=== PATIENT | male | born 1985 | race Caucasian/White ===

== ENCOUNTER → 2016-06-13 | Outpatient (CLI) | payer OTHER ==
[2016-06-13 11:17] LABS: ALANINE AMINOTRANSFERASE 79 U/L (21-72); ALBUMIN 4.5 g/dL (3.5-5.0); ALKALINE PHOSPHATASE 79 U/L (38-126); ANION GAP 14 (5-19); ASPARTATE AMINO TRANSFERASE 34 U/L (17-59); BILIRUBIN,TOTAL 0.6 mg/dL (0.2-1.3); BLOOD UREA NITROGEN 17 mg/dL (7-20); CALCIUM 9.4 mg/dL (8.4-10.2); CARBON DIOXIDE 25 mmol/L (22-30); CHLORIDE 105 mmol/L (98-107); CHOLESTEROL 163.18 mg/dL (0-200); CREATININE RESULT 0.85 mg/dL (0.52-1.25); Direct HDL 33 mg/dL (>40); GLUCOSE 90 mg/dL (75-110); POTASSIUM 4.2 mmol/L (3.6-5.0); TRIGLYCERIDES 141 mg/dL (<150)
[2016-06-13 11:29] LABS: DIRECT LDL 105 mg/dL (<100)
== END ==
LOC: OD 09:30
DX: I10 Essential (primary) hypertension (principal)
CPT/HCPCS: 36415; 80053; 80061; 83036

== ENCOUNTER 2017-07-18 22:17 | Emergency (ER) | payer OTHER ==
--- NOTE | 2017-07-18 23:04 | ER Document Report ---
ED Medical Screen (RME) - General Chief Complaint: Upper Abdominal Pain Stated Complaint: SIDE PAIN Time Seen by Provider: 07/18/17 22:55 Mode of Arrival: Ambulatory Information source: Patient Notes: 32-year-old male presents to ED for upper left abdominal pain getting worse. States he was diagnosed with pneumonia yesterday. States she has been coughing on and on for almost a week. States she has had the left upper abdominal pain for about 2-3 weeks and the pneumonia he was diagnosed was in the lower right lobe. States she had bronchitis about a month or 2 ago. States he lost his mom on June 10. Abdomen soft tender to the left upper quadrant. I have greeted and performed a rapid initial assessment of this patient. A comprehensive ED assessment and evaluation of the patient, analysis of test results and completion of medical decision making process will be conducted by an additional ED providers. TRAVEL OUTSIDE OF THE [place] IN LAST 30 DAYS: No - Related Data Allergies/Adverse Reactions: latex [Latex] Allergy (Intermediate, Verified 04/27/16 09:32) rash oxycodone HCl [From Percocet] Allergy (Mild, Verified 04/27/16 09:32) itchy Past Medical History Pulmonary Medical History: Reports: Hx Bronchitis Musculoskeltal Medical History: Reports Hx Arthritis Past Surgical History: Reports: Hx Abdominal Surgery - herniorrhaphy., Hx Genitourinary Surgery - urethra strictures, Hx Herniorrhaphy, Other - ear surgery - Immunizations Immunizations up to date: Yes Hx Diphtheria, Pertussis, Tetanus Vaccination: Yes - 2006 Physical Exam - Vital signs Vitals: Temp Pulse Resp BP Pulse Ox 98.4 F 90 18 135/85 H 97 07/18/17 22:40 07/18/17 22:40 07/18/17 22:40 07/18/17 22:40 07/18/17 22:40 Course - Vital Signs Vital signs: Temp Pulse Resp BP Pulse Ox 98.4 F 90 18 135/85 H 97 07/18/17 22:40 07/18/17 22:40 07/18/17 22:40 07/18/17 22:40 07/18/17 22:40
[2017-07-18 23:50] LABS: ABSOLUTE BASOPHILS # (AUTO) 0.1 10^3/uL (0.0-0.2); ABSOLUTE EOSINOPHILS # (AUTO) 0.1 10^3/uL (0.0-0.6); ABSOLUTE LYMPHOCYTES (AUTO) 2.5 10^3/uL (0.5-4.7); ABSOLUTE MONOCYTES (AUTO) 0.5 10^3/uL (0.1-1.4); ABSOLUTE NEUT (AUTO) 5.2 10^3/uL (1.7-8.2); BASOPHILS % (AUTO) 0.8 % (0-2); EOSINOPHILS % (AUTO) 1.6 % (0-6); HEMATOCRIT 44.3 % (37.9-51.0); HEMOGLOBIN 15.3 g/dL (13.5-17.0); LYMPHOCYTES % (AUTO) 29.6 % (13-45); MEAN CORPUSCULAR HEMOGLOBIN 29.3 pg (27.0-33.4); MEAN CORPUSCULAR HGB CONC 34.7 g/dL (32.0-36.0); MEAN CORPUSCULAR VOLUME 84 fl (80-97); MONOCYTES % (AUTO) 6.4 % (3-13); PLATELET COUNT 209 10^3/uL (150-450); RED BLOOD COUNT 5.24 10^6/uL (4.35-5.55); RED CELL DISTRIBUTION WIDTH 14.4 % (11.5-14.0); SEGMENTED NEUTROPHILS % (AUTO) 61.6 % (42-78); TOTAL CELLS COUNTED % (AUTO) 100 %; WHITE BLOOD COUNT 8.4 10^3/uL (4.0-10.5)
[2017-07-19 00:04] LABS: ALANINE AMINOTRANSFERASE 60 U/L (21-72); ALBUMIN 4.8 g/dL (3.5-5.0); ALKALINE PHOSPHATASE 80 U/L (38-126); ANION GAP 12 (5-19); ASPARTATE AMINO TRANSFERASE 36 U/L (17-59); BILIRUBIN,DIRECT 0.1 mg/dL (0.0-0.4); BILIRUBIN,TOTAL 0.3 mg/dL (0.2-1.3); BLOOD UREA NITROGEN 14 mg/dL (7-20); CALCIUM 10.1 mg/dL (8.4-10.2); CARBON DIOXIDE 26 mmol/L (22-30); CHLORIDE 104 mmol/L (98-107); GLUCOSE 106 mg/dL (75-110); POTASSIUM 4.1 mmol/L (3.6-5.0); SODIUM 141.6 mmol/L (137-145); TOTAL PROTEIN 7.2 g/dL (6.3-8.2)
--- NOTE | 2017-07-19 01:04 | RADIOLOGY REPORT (SQ) ---
EXAM DESCRIPTION: U/S ABDOMEN LIMITED W/O DOP CLINICAL HISTORY: 32 years Male, left upper quad abdominal pain and tenderness COMPARISON: None. TECHNIQUE: Real-time sonographic images of the left upper abdomen obtained using a curved multi hertz transducer. FINDINGS: The spleen measures 13.6 cm with no other sonographic abnormality. The left kidney measures 11.8 cm in length. No solid renal mass, shadowing renal calculi, or hydronephrosis. IMPRESSION: 1. Splenomegaly.
[2017-07-19] MEDS ORDERED: NORMAL SALINE 1000 ML 1,000 ML IV ONE (04:34)
[2017-07-19] MEDS ORDERED: PREDNISONE 20 MG TABLET PO ONE (04:34)
--- NOTE | 2017-07-19 04:35 | ER Document Report ---
ED General - General Chief Complaint: Upper Abdominal Pain Stated Complaint: SIDE PAIN Time Seen by Provider: 07/18/17 22:55 Mode of Arrival: Ambulatory Notes: Patient is a 32-year-old male presents with complaint of pain in his left upper quadrant feels as if he might have enlarged spleen. He has been having pain for a few weeks. He says he has been sick with bronchitis since . He was recently placed in azithromycin was told he had pneumonia. He was placed on steroids. He was given an inhaler. He says he continues to cough. He denies any trauma or injuries to his abdomen. He denies any vomiting or diarrhea. He does smoke. He has no other complaints at this time. TRAVEL OUTSIDE OF THE [place] IN LAST 30 DAYS: No - Related Data Allergies/Adverse Reactions: latex [Latex] Allergy (Intermediate, Verified 04/27/16 09:32) rash oxycodone HCl [From Percocet] Allergy (Mild, Verified 04/27/16 09:32) itchy Past Medical History - General Information source: Patient - Social History Smoking Status: Current Every Day Smoker Frequency of alcohol use: None Drug Abuse: None Family History: Reviewed & Not Pertinent Patient has suicidal ideation: No Patient has homicidal ideation: No Pulmonary Medical History: Reports: Hx Bronchitis Renal/ Medical History: Denies: Hx Peritoneal Dialysis Musculoskeltal Medical History: Reports Hx Arthritis Past Surgical History: Reports: Hx Abdominal Surgery - herniorrhaphy., Hx Genitourinary Surgery - urethra strictures, Hx Herniorrhaphy, Other - ear surgery - Immunizations Immunizations up to date: Yes Hx Diphtheria, Pertussis, Tetanus Vaccination: Yes - 2006 Review of Systems - Review of Systems Notes: My Normal Review Basic REVIEW OF SYSTEMS: CONSTITUTIONAL : Recent diagnosis of pneumonia. EENT: sinus congestion. CARDIOVASCULAR: Denies chest pain. RESPIRATORY: Recurrent coughing. GASTROINTESTINAL: Soreness over left upper quadrant. No nausea vomiting. MUSCULOSKELETAL: Denies neck or back pain or joint pain or swelling. SKIN: Denies rash or skin lesions. NEUROLOGICAL: Denies altered mental status or loss of consciousness. Denies headache. Denies weakness or paralysis or loss of use of either side. Denies problems with gait or speech. Denies sensory or motor loss. ALL OTHER SYSTEMS REVIEWED AND NEGATIVE. Physical Exam - Vital signs Vitals: Temp Pulse Resp BP Pulse Ox 98.4 F 90 18 135/85 H 97 07/18/17 22:40 07/18/17 22:40 07/18/17 22:40 07/18/17 22:40 07/18/17 22:40 - Notes Notes: General Appearance: Well nourished, alert, cooperative, no acute distress, no obvious discomfort. recurrent dry cough on exam. Vitals: reviewed, See vital signs table. Head: no swelling or tenderness to the head Eyes: PERRL, EOMI, Conjuctiva clear Mouth: No decreasd moisture Throat: No tonsillar inflammation, No airway obstruction, No lymphadenopathy Neck: Supple, no neck tenderness, No thyromegaly Lungs: No wheezing, No rales, No rhonci, No accessory muscle use, good air exchange bilaterally. Heart: Normal rate, Regular rythm, No murmur, no rub Abdomen: Normal BS, soft, No rigidity, mild soreness to the left upper quadrant on palpation. Remainder of abdomen is nontender. Extremities: strength 5/5 in all extremities, good pulses in all extremities, no swelling or tenderness in the extremities, no edema. Skin: warm, dry, appropriate color, no rash Neuro: speech clear, oriented x 3, normal affect, responds appropriately to questions. Course - Re-evaluation Re-evalutation: 07/19/17 05:44 Patient has bronchitis possible pneumonia. He is already on antibiotics for this. He does have some coarse his lung cheng and therefore given prednisone. He has had abdominal pain for several weeks now. I suspect that his splenomegaly is most likely related to a viral type infection. I did discuss this with him. His mild test is negative. Formed him that there are other causes of splenomegaly which I think are much less likely however if his symptoms continue need to follow-up with health care sanitary technician. I have given the number to Dr. Hamilton, health care sanitary technician gas station supervisor. Informed him that further evaluation he may want to do further testing. Also informed him the risks of splenic rupture being that he has enlarged spleen. I encouraged her return to ER immediately if he has any trauma to his abdomen, increasing pain, fevers, or feels unwell. Patient agrees with plan will be discharged home. Dictation of this chart was performed using voice recognition software; therefore, there may be some unintended grammatical errors. - Vital Signs Vital signs: Temp Pulse Resp BP Pulse Ox 97.8 F 79 18 125/83 98 07/19/17 04:13 07/19/17 04:13 07/19/17 04:13 07/19/17 04:13 07/19/17 04:13 - Laboratory Result Diagrams: 07/18/17 23:40 07/18/17 23:40 Laboratory results interpreted by me: 07/18/17 23:40 RDW 14.4 H Discharge - Discharge Clinical Impression: Spleen enlarged, Bronchitis Condition: Good Disposition: HOME, SELF-CARE Additional Instructions: Your CT scan and ultrasound just show an enlarged spleen. Your scan shows that you have good blood flow to your spleen. The most likely cause of your enlarged spleen would be a viral infection such as Ebstein Prater virus or C[place] virus. The are other causes of enlarged spleen such as lymphoma and certain blood disorders. These are less likely, but we will have you follow up with the health care sanitary technician, Dr. Hamilton, for reevaluation and consideration of further workup if he feels that it is needed. Also you will likely need a repeat ultrasound of you spleen to make sure it is not enlarging further. Anytime you have an enlarged spleen you need to avoid trauma as any trauma can lead to spleen rupture. Please return to the ER immediately if you develop worsening salazar, high fevers, trauma to your abdomen, or if you feel unwell. Please take the Prednisone as prescribed for your lungs. please follow up with your doctor in 4- 5 days for reevaluation. return to the ER if you have difficulty breathing, worsening wheezing not responding to your inhaler, or if you feel that you are worsening. Prescriptions: Prednisone [Deltasone 20 mg Tablet] 3 tab PO DAILY 4 Days tablet Forms: Return to Work
--- NOTE | 2017-07-19 05:31 | RADIOLOGY REPORT (SQ) ---
EXAM DESCRIPTION: CT ABDOMEN AND PELVIS WITH CONTRAST CLINICAL HISTORY: enlarged spleen COMPARISON: 08/18/2012 TECHNIQUE: CT of the abdomen and pelvis are performed during IV bolus administration of 100 mL of Isovue-370. DLP: 1187.70 mGycm FINDINGS: Abdomen: The liver has normal size and density. No intrahepatic mass or biliary dilatation. No calcified gallstones. Gleason megaly. Pancreas and adrenal glands are unremarkable. The kidneys have normal size and contour without evidence of solid mass or hydronephrosis. The aorta and IVC have normal caliber and position. Retroaortic left renal vein. The portal vein patent. The proximal visceral and renal arteries are patent. No free intraperitoneal air. The stomach and duodenum have normal course. Pelvis: Prostate is not enlarged. Prior hernia repair. Urinary bladder is unremarkable. No free pelvic fluid or lymphadenopathy. No dilated loops of large or small bowel. Normal appendix. The visualized lung bases are clear. No destructive bone lesions identified. IMPRESSION: 1. Splenomegaly. 2. No other acute abnormality identified in the abdomen or pelvis. This exam was performed according to our departmental dose-optimization program, which includes automated exposure control, adjustment of the mA and/or kV according to patient size and/or use of iterative reconstruction technique.
[2017-07-19 06:11] VITALS: BP 126/67
== END 2017-07-19 06:08 | disposition home or self-care (01) ==
LOC: ER 22:17
DX: R16.1 Splenomegaly, not elsewhere classified (principal); J40 Bronchitis, not specified as acute or chronic; R10.12 Left upper quadrant pain; R05 Cough; F17.200 Nicotine dependence, unspecified, uncomplicated
CPT/HCPCS: 99284; 36415; 85025; 86308; 80053; 76705; 74160; J7512; J7030

== ENCOUNTER 2017-07-22 23:27 | Emergency (ER) | payer SELFPAY ==
--- NOTE | 2017-07-23 01:32 | ER Document Report ---
ED General - General Chief Complaint: Abdominal Pain Stated Complaint: ABDOMINAL PAIN Time Seen by Provider: 07/23/17 01:22 Notes: Patient is a 32-year-old male presents with complaint of pain over the left upper quadrant of the abdomen. He also has pain into the chest. Says it does hurt to take a deep breath. He was seen by me a few days ago. At that time he also had enlarged spleen. CT scan showed no evidence of infarction. His mono test was negative that time. We referred him to him with pathology. He has an appointment with the oyster worker on Saturday. He says that the pain has gradually worsened. Denies any trauma to the area. No fevers. He says he says he more in his lungs and anywhere. He has been taking the antibiotics that his physician had prescribed him for the pneumonia. He returns because of the increasing pain. TRAVEL OUTSIDE OF THE [place] IN LAST 30 DAYS: No - Related Data Allergies/Adverse Reactions: latex [Latex] Allergy (Intermediate, Verified 04/27/16 09:32) rash oxycodone HCl [From Percocet] Allergy (Mild, Verified 04/27/16 09:32) itchy Past Medical History - Social History Smoking Status: Unknown if Ever Smoked Frequency of alcohol use: None Drug Abuse: None Family History: Reviewed & Not Pertinent Patient has suicidal ideation: No Patient has homicidal ideation: No Pulmonary Medical History: Reports: Hx Bronchitis Renal/ Medical History: Denies: Hx Peritoneal Dialysis Musculoskeltal Medical History: Reports Hx Arthritis Past Surgical History: Reports: Hx Abdominal Surgery - herniorrhaphy., Hx Genitourinary Surgery - urethra strictures, Hx Herniorrhaphy, Other - ear surgery - Immunizations Immunizations up to date: Yes Hx Diphtheria, Pertussis, Tetanus Vaccination: Yes - 2006 Review of Systems - Review of Systems Notes: My Normal Review Basic REVIEW OF SYSTEMS: CONSTITUTIONAL : Denies fever, chills, or sweats. Denies recent illness. EENT: Denies eye, ear, throat, or mouth pain or symptoms. Denies nasal or sinus congestion. CARDIOVASCULAR: Floor chest pain RESPIRATORY: Cough. Recent diagnosis of pneumonia. GASTROINTESTINAL: Upper quadrant denies nausea, vomiting, or diarrhea. GENITOURINARY: Denies difficulty urinating, painful urination, burning, frequency, or blood in urine. MUSCULOSKELETAL: Denies neck or back pain or joint pain or swelling. SKIN: Denies rash or skin lesions. NEUROLOGICAL: Denies altered mental status or loss of consciousness. Denies headache. Denies weakness or paralysis or loss of use of either side. Denies problems with gait or speech. Denies sensory or motor loss. ALL OTHER SYSTEMS REVIEWED AND NEGATIVE. Physical Exam - Vital signs Vitals: Temp Pulse Resp BP Pulse Ox 98.4 F 85 14 129/81 H 96 07/22/17 23:38 07/22/17 23:38 07/22/17 23:38 07/22/17 23:38 07/22/17 23:38 - Notes Notes: General Appearance: Well nourished, alert, cooperative, no acute distress, moderate obvious discomfort. Vitals: reviewed, See vital signs table. Head: no swelling or tenderness to the head Eyes: PERRL, EOMI, Conjuctiva clear Mouth: No decreasd moisture Throat: No tonsillar inflammation, No airway obstruction, No lymphadenopathy Lungs: No wheezing, No rales, No rhonci, No accessory muscle use, good air exchange bilaterally. Heart: Normal rate, Regular rythm, No murmur, no rub Abdomen: Normal BS, soft, No rigidity, mild left upper quadrant abdominal tenderness to palpation, No guarding, no rebound, no abdominal masses, no organomegaly Extremities: strength 5/5 in all extremities, good pulses in all extremities, no swelling or tenderness in the extremities, no edema. Skin: warm, dry, appropriate color, no rash Neuro: speech clear, oriented x 3, normal affect, responds appropriately to questions. Course - Re-evaluation Re-evalutation: 07/23/17 07:30 Patient's chest x-ray does not show any concerning findings. His spleen ultrasound does not show that the spleen is enlarging. He has good vascular flow. His laboratory evaluation is unremarkable. I encourage patient to keep his appointment with the oyster worker. I encourage him return to ER if he has difficulty breathing, worsening pain, fevers, or feels unwell. Patient says his cough has improved significantly since starting the prednisone. Dictation of this chart was performed using voice recognition software; therefore, there may be some unintended grammatical errors. - Vital Signs Vital signs: Temp Pulse Resp BP Pulse Ox 98.4 F 81 20 125/65 98 07/22/17 23:38 07/23/17 03:44 07/23/17 03:44 07/23/17 03:44 07/23/17 03:44 - Laboratory Result Diagrams: 07/23/17 03:00 07/23/17 03:00 Laboratory results interpreted by me: 07/23/17 07/23/17 03:00 03:00 WBC 11.9 H RDW 14.4 H Seg Neutrophils % 84.9 H Lymphocytes % 11.5 L Absolute Neutrophils 10.1 H Glucose 156 H Discharge - Discharge Clinical Impression: Chest pain Qualifiers: Chest pain type: unspecified Qualified Code(s): R07.9 - Chest pain, unspecified Abdominal pain Qualifiers: Abdominal location: left upper quadrant Qualified Code(s): R10.12 - Left upper quadrant pain Condition: Good Disposition: HOME, SELF-CARE Additional Instructions: Please follow up with the oyster worker on Saturday as scheduled. Please return to the ER immediately if you have difficulty breathing, fevers, worsening pain, or have any further concerns. Please take Tylenol for the pain. Forms: Return to Work
--- NOTE | 2017-07-23 02:41 | RADIOLOGY REPORT (SQ) ---
EXAM DESCRIPTION: U/S ABDOMEN LTD W/DOPPLER CLINICAL HISTORY: 32 years, Male, spleen, luq pain COMPARISON: 08/16/2017. CT, July 19, 2017. TECHNIQUE: Transabdominal. Color Doppler. Targeted for evaluation of the spleen. LIMITATIONS: None. FINDINGS: 13.8 cm mild splenomegaly; venous and arterial flow demonstrated at the splenic hilum. 11.8 cm left kidney appears unremarkable. IMPRESSION: Mild splenomegaly. Stable.
[2017-07-23 03:13] LABS: ABSOLUTE LYMPHOCYTES (AUTO) 1.4 10^3/uL (0.5-4.7); ABSOLUTE MONOCYTES (AUTO) 0.4 10^3/uL (0.1-1.4); ABSOLUTE NEUT (AUTO) 10.1 10^3/uL (1.7-8.2); BASOPHILS % (AUTO) 0.1 % (0-2); EOSINOPHILS % (AUTO) 0.1 % (0-6); HEMATOCRIT 41.7 % (37.9-51.0); HEMOGLOBIN 14.3 g/dL (13.5-17.0); LYMPHOCYTES % (AUTO) 11.5 % (13-45); MEAN CORPUSCULAR HEMOGLOBIN 29.4 pg (27.0-33.4); MEAN CORPUSCULAR HGB CONC 34.4 g/dL (32.0-36.0); MEAN CORPUSCULAR VOLUME 85 fl (80-97); MONOCYTES % (AUTO) 3.4 % (3-13); PLATELET COUNT 215 10^3/uL (150-450); RED BLOOD COUNT 4.88 10^6/uL (4.35-5.55); RED CELL DISTRIBUTION WIDTH 14.4 % (11.5-14.0); SEGMENTED NEUTROPHILS % (AUTO) 84.9 % (42-78); TOTAL CELLS COUNTED % (AUTO) 100 %; WHITE BLOOD COUNT 11.9 10^3/uL (4.0-10.5)
[2017-07-23 03:17] LABS: ALANINE AMINOTRANSFERASE 60 U/L (21-72); ALBUMIN 4.5 g/dL (3.5-5.0); ALKALINE PHOSPHATASE 91 U/L (38-126); ANION GAP 10 (5-19); ASPARTATE AMINO TRANSFERASE 26 U/L (17-59); BILIRUBIN,DIRECT 0.1 mg/dL (0.0-0.4); BILIRUBIN,TOTAL 0.2 mg/dL (0.2-1.3); BLOOD UREA NITROGEN 18 mg/dL (7-20); CALCIUM 9.6 mg/dL (8.4-10.2); CARBON DIOXIDE 24 mmol/L (22-30); CHLORIDE 106 mmol/L (98-107); GLUCOSE 156 mg/dL (75-110); SODIUM 140.3 mmol/L (137-145); TOTAL PROTEIN 6.6 g/dL (6.3-8.2)
[2017-07-23 03:45] VITALS: BP 125/65
--- NOTE | 2017-07-23 04:50 | RADIOLOGY REPORT (SQ) ---
EXAM DESCRIPTION: CHEST PA/LAT CLINICAL HISTORY: 32 years, Male, cough, recnet pneumonia COMPARISON: April 10, 2015 FINDINGS: Increased lung volume, clear parenchyma, normal cardiac silhouette, and intact bony thorax. IMPRESSION: No acute cardiopulmonary findings.
== END 2017-07-23 03:44 | disposition home or self-care (01) ==
LOC: ER 23:27
DX: R10.12 Left upper quadrant pain (principal); R07.9 Chest pain, unspecified; Z88.6 Allergy status to analgesic agent
CPT/HCPCS: 36415; 71046; 76705; 80053; 85025; 93976; 99284

== ENCOUNTER → 2017-08-27 | Outpatient (CLI) | payer SELFPAY ==
[2017-08-27 16:40] LABS: INTERNATIONAL RATION (INR) 0.93; PARTIAL THROMBOPLASTIN TIME 30.9 SEC (23.5-35.8); PROTHROMBIN TIME 13.1 SEC (11.4-15.4)
== END ==
LOC: OD 15:20
PROVIDERS: ATTEND Surgery
DX: Z91.89 Other specified personal risk factors, not elsewhere classified (principal)
CPT/HCPCS: 36415; 85610; 85730

== ENCOUNTER 2017-10-23 08:56 | Day surgery (SDC) | payer SELFPAY ==
[2017-10-14 11:03] LABS: HEMATOCRIT 45.7 % (37.9-51.0); HEMOGLOBIN 15.8 g/dL (13.5-17.0); MEAN CORPUSCULAR HEMOGLOBIN 29.5 pg (27.0-33.4); MEAN CORPUSCULAR HGB CONC 34.6 g/dL (32.0-36.0); MEAN CORPUSCULAR VOLUME 85 fl (80-97); PLATELET COUNT 182 10^3/uL (150-450); RED BLOOD COUNT 5.37 10^6/uL (4.35-5.55); RED CELL DISTRIBUTION WIDTH 14.7 % (11.5-14.0); WHITE BLOOD COUNT 6.9 10^3/uL (4.0-10.5)
[2017-10-14 11:34] LABS: ANION GAP 16 (5-19); BLOOD UREA NITROGEN 13 mg/dL (7-20); CALCIUM 9.8 mg/dL (8.4-10.2); CARBON DIOXIDE 25 mmol/L (22-30); CHLORIDE 104 mmol/L (98-107); GLUCOSE 100 mg/dL (75-110); POTASSIUM 4.5 mmol/L (3.6-5.0); SODIUM 144.5 mmol/L (137-145)
--- NOTE | 2017-10-14 14:10 | EKG REPORT ---
SEVERITY:- NORMAL ECG - SINUS RHYTHM : Confirmed by: Raul Mcdonough MD 14-Oct-2017 14:09:59
[~2017-10-23 08:56] MED LIST: LACTATED RINGERS 1000 ML IV PRN; LIDOCAINE 0.5% INJ-PF (5 MG/ML) 50 ML SDV SUBCUT PRN
[2017-10-23] MEDS ORDERED: MIDAZOLAM 2 MG/2 ML INJ ONE ×2 (10:07)
[2017-10-23] MEDS ORDERED: KETAMINE HCL INJ 500 MG/10 ML VIAL ONE (10:07)
[2017-10-23] MEDS ORDERED: PROPOFOL INJ 200 MG/20 ML VIAL IV ONE ×2 (10:08→10:13)
[2017-10-23] MEDS ORDERED: DIPHENHYDRAMINE HCL 50 MG/ML VIAL IV PRN (10:44)
[2017-10-23] MEDS ORDERED: MEPERIDINE HCL/PF INJ 25 MG/1 ML DISP.SYRIN IV PRN (10:44)
[2017-10-23] MEDS ORDERED: PROMETHAZINE HCL INJ 25 MG/1 ML VIAL IV PRN ×2 (10:44)
--- NOTE | 2017-10-23 11:15 | Operative Report ---
Operative Report DATE OF SURGERY: 10/23/17 PREOPERATIVE DIAGNOSIS: 1. Abdominal pain of unknown etiology. 2. Splenomegaly POSTOPERATIVE DIAGNOSIS: Same OPERATION: 1. Esophagogastroduodenoscopy. 2. Cold forceps biopsy of gastric body. 3. Total colonoscopy to cecum with photodocumentation. SURGEON: SEJAL LANGE ANESTHESIA: LMAC TISSUE REMOVED OR ALTERED: Cold forceps biopsy gastric mucosa COMPLICATIONS: None ESTIMATED BLOOD LOSS: Scant INTRAOPERATIVE FINDINGS: See below PROCEDURE: Patient was taken to the operating room where LMAC anesthesia was induced. Patient placed a left lateral decubitus position, oral mouthpiece inserted the hypopharynx and the styes. 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 The surgical timeout surgical plan were discussed The flexible adult upper endoscope was advanced through the oropharynx, down the esophagus, through the stomach into the duodenum. This is an excellent study well tolerated by the patient without complication. The first and second portions of the duodenum were carefully visualized and were normal. The scope was brought through the pylorus, and there was no evidence of pathology. There was mild gastritis of the gastric antrum, photos taken, and a biopsy performed with the cold forceps device, bleeding minimal. There was no evidence of tumor stricture or polyp. There was no evidence of retained gastric contents. The scope was retroflexed in the stomach, with a good look at the GE junction from the distal side which was essentially unremarkable. Scope straightened out and brought back through the GE junction; visualization of the entire esophagus was performed. There was no evidence of varix, tumor or mass. There was no evidence of stricture. Scope was room for the patient's oropharynx. Tolerated procedure well. Weakness of the equipment up for colonoscopy. The patient placed in the extreme left lateral decubitus position. A rectal exam performed by Dr. Lange using index finger. There is no evidence of a prostatic mass. The anal sphincter tone was felt to be normal. The flexible colonoscope was advanced to the anorectal canal all the way to the cecum. This was an excellent study and a well-prepped bowel. Residual amount of green юлия type stool which irrigated out easily. Transillumination of the intra-abdominal wall, visualization of the cecal anatomy confirmed cecal intubation. The terminal ileum was not cannulated. The scope was withdrawn through the length of the human colon; we checked the mucosa carefully. There was some evidence of mild mucosal trauma, otherwise no evidence of pathology. There was no evidence of tumor stricture bleeding or polyp. There is no diverticulosis. Scope was retroflexed in the anorectal canal. No evidence of tumor or any pathology at the dentate line. Scope withdrawn the patient's anus. He tolerated procedure well. He was taken to recovery room stable condition. Per screening guidelines, patient be appropriate candidate for follow-up colonoscopy in 10 years, or sooner if symptoms develop.
[2017-10-23 12:57] VITALS: BP 133/91
--- NOTE | 2017-10-23 13:34 | Discharge Summary ---
Discharge Summary (SDC) - Discharge Final Diagnosis: screening colonoscopy Date of Surgery: 10/23/17 Discharge Date: 10/23/17 Condition: Good Forms: ASU Anesthesia D/C Instruction, Discharge POC-Surgical Service Referrals: SEJAL RUTLEDGE MD [ACTIVE STAFF] - 11/05/17 1:00 pm Respiratory Treatments at Home: Deep Breathing/Coughing Discharge Activity: Activity As Tolerated, Slowly Increase Activity, Walk Frequently Home Care Assistance: None Needed Report the Following to Your Physician Immediately: Shortness of Breath, Vomiting, Increase in Pain, Fever over 101 Degrees, Unusual Bleeding, Large Clots, IV Site Infection Signs, Urinary Infection Signs
== END 2017-10-23 13:04 | disposition home or self-care (01) ==
LOC: OROUT 08:56
PROVIDERS: ATTEND Surgery
DX: K29.50 Unspecified chronic gastritis without bleeding (principal); R10.9 Unspecified abdominal pain; Z87.19 Personal history of other diseases of the digestive system; F17.210 Nicotine dependence, cigarettes, uncomplicated; D66 Hereditary factor VIII deficiency; R16.1 Splenomegaly, not elsewhere classified; I10 Essential (primary) hypertension; I49.9 Cardiac arrhythmia, unspecified; M26.09 Other specified anomalies of jaw size; Z88.5 Allergy status to narcotic agent
CPT/HCPCS: 43239; 45378; 93005; 36415; 85027; 80048; 88342 ×2; 88305 ×2; 93010; J2250; J3490; J2704; 813

== ENCOUNTER → 2017-12-09 | Outpatient (CLI) | payer SELFPAY ==
[2017-12-09 14:18] LABS: PFA ADP 115 (56-106); PFA EPI 251 (55-179)
== END ==
LOC: OD 12:32
PROVIDERS: ATTEND Internal Medicine Hematology & Oncology
DX: R58 Hemorrhage, not elsewhere classified (principal); R16.1 Splenomegaly, not elsewhere classified
CPT/HCPCS: 36415; 85576

== ENCOUNTER 2018-01-09 05:58 | Emergency (ER) | payer SELFPAY ==
--- NOTE | 2018-01-09 07:07 | ER Document Report ---
ED General - General Chief Complaint: Pain All Over Stated Complaint: FEVER Time Seen by Provider: 01/09/18 06:53 TRAVEL OUTSIDE OF THE [place] IN LAST 30 DAYS: No - HPI Patient complains to provider of: shivering after dental procedure Onset: Yesterday Onset/Duration: Gradual Quality of pain: No pain Associated symptoms: None - This 32-year-old gentleman had a dental extraction yesterday after which he began to have some chills through the night with some shaking and a general feeling of being unwell. He notes that he has had bleeding problems in the past and that he had some oozing from the dental site for several hours after his procedure. He denies any loss of consciousness lightheadedness but does endorse chills and a sensation of potentially having a fever. He notes that he has had bad reactions in the past medications nothing is a seem to make it any better nothing is seen to make it much worse. - Related Data Allergies/Adverse Reactions: latex [Latex] Allergy (Intermediate, Verified 10/23/17 09:13) rash oxycodone HCl [From Percocet] Allergy (Mild, Verified 10/23/17 09:13) itchy Past Medical History - Social History Smoking Status: Current Every Day Smoker Family History: Reviewed & Not Pertinent Patient has suicidal ideation: No Patient has homicidal ideation: No - Medical History Medical History: Other - History of bleeding problems - Past Medical History Cardiac Medical History: Reports: Hx Hypertension - no meds Denies: Hx Coronary Artery Disease, Hx Heart Attack Pulmonary Medical History: Reports: Hx Bronchitis Denies: Hx Asthma, Hx COPD, Hx Pneumonia Neurological Medical History: Denies: Hx Cerebrovascular Accident, Hx Seizures Renal/ Medical History: Denies: Hx Peritoneal Dialysis Musculoskeletal Medical History: Reports Hx Arthritis - back Past Surgical History: Reports: Hx Abdominal Surgery - herniorrhaphy., Hx Genitourinary Surgery - urethra strictures, Hx Herniorrhaphy, Other - ear surgery - Immunizations Immunizations up to date: Yes Hx Diphtheria, Pertussis, Tetanus Vaccination: Yes - 2006 Review of Systems - Review of Systems Constitutional: No symptoms reported EENT: Dental problem Cardiovascular: No symptoms reported Respiratory: No symptoms reported Gastrointestinal: No symptoms reported Genitourinary: No symptoms reported Musculoskeletal: No symptoms reported Skin: No symptoms reported Hematologic/Lymphatic: No symptoms reported Neurological/Psychological: No symptoms reported Physical Exam - Vital signs Vitals: Temp Pulse Resp BP Pulse Ox 98.4 F 125 H 16 133/88 H 96 01/09/18 06:04 01/09/18 06:04 01/09/18 06:04 01/09/18 06:04 01/09/18 06:04 - General General appearance: Appears well In distress: None - HEENT Head: Normocephalic Teeth diagram: 1 - Extraction Pharynx: Normal Neck: Normal - Respiratory Respiratory status: No respiratory distress - Cardiovascular Rhythm: Regular Heart sounds: Normal auscultation - Abdominal Inspection: Normal - Extremities General upper extremity: Normal inspection - Neurological Neuro grossly intact: Yes - Psychological Associated symptoms: Normal affect Course - Re-evaluation Re-evalutation: 01/09/18 07:08 This 32-year-old male presented for evaluation of approximately 20 hours after having a dental extraction yesterday. Following his dental extraction had persistent oozing from the site of the extraction, re-presented to the dentist reevaluated him said that using was appropriate. At this time given that the oozing is controlled and stopped approximately 12 hours prior patient noted that he woke up this morning with chills does not feel well. We will plan for obtaining CBC, will plan for basic chemistry as well. We will plan for observation. In the emergency department and encourage oral intake for this patient. 01/09/18 07:55 Patient has become febrile, we will plan to administer Tylenol, reassess the patient will administer 1 L of normal saline via IV will obtain a chest x-ray for possible aspiration while receiving dental care. Patient with modest atelectasis, his fever and tachycardia resolved after administration of Tylenol emergency department is able tolerate p.o. and ambulate without assistance. His chest x-ray shows a modest infiltrate which is read as atelectasis clinically this patient does likely have a pneumonia as such we will plan to treat. Patient to be discharged with strict return precautions in case of any worsening shortness of breath chest pain fevers chills inability to tolerate p.o. Of note is that this patient did have a normal H&H as well as normal bmp despite her saying that he has a history of bleeding. He does have slightly lower platelets than usual but not in worrisome state requiring transfusion. 01/09/18 10:39 - Vital Signs Vital signs: Temp Pulse Resp BP Pulse Ox 98.5 F 125 H 15 105/78 97 01/09/18 08:46 01/09/18 06:04 01/09/18 08:46 01/09/18 08:46 01/09/18 08:46 - Laboratory Result Diagrams: 01/09/18 07:30 01/09/18 07:30 Laboratory results interpreted by me: 01/09/18 07:30 RDW 14.3 H Plt Count 117 L Seg Neutrophils % 83.4 H Lymphocytes % 8.2 L Absolute Lymphocytes 0.4 L Discharge - Discharge Clinical Impression: Aspiration into airway Condition: Stable Disposition: HOME, SELF-CARE Instructions: Fever ([facility]), Pneumonia ([facility]) Additional Instructions: You were seen today in the emergency department for your fever. You had an evaluation including a physical exam, chest x-ray, and tests of your blood. It looks like you may have a small pneumonia after having swallowed some spit during surgery. You will be treated with an antibiotic, use it as described. Use Motrin and Tylenol as needed for pain and fever, return for any worsening shortness of breath chest pain and inability to eat or drink lightheadedness dizziness numbness or weakness. Otherwise call your doctor today to schedule appointment in the next 3 days. Prescriptions: Amoxicillin/Potassium Clav [Augmentin Xr 1,000-62.5 Tab] 2 each PO BID 7 Days # 14 tab.er.[id number] Forms: Return to Work Referrals: AKBAR TREVINO MD [ACTIVE STAFF] - Follow up as needed
[2018-01-09] MEDS ORDERED: ACETAMINOPHEN 325 MG TABLET PO ONE (07:35)
[2018-01-09] MEDS ORDERED: NORMAL SALINE 1000 ML 1,000 ML IV ONE (07:35)
[2018-01-09 07:55] LABS: ABSOLUTE LYMPHOCYTES (AUTO) 0.4 10^3/uL (0.5-4.7); ABSOLUTE MONOCYTES (AUTO) 0.4 10^3/uL (0.1-1.4); BASOPHILS % (AUTO) 0.4 % (0-2); EOSINOPHILS % (AUTO) 0.4 % (0-6); HEMATOCRIT 43.3 % (37.9-51.0); HEMOGLOBIN 15.2 g/dL (13.5-17.0); LYMPHOCYTES % (AUTO) 8.2 % (13-45); MEAN CORPUSCULAR HEMOGLOBIN 29.4 pg (27.0-33.4); MEAN CORPUSCULAR VOLUME 84 fl (80-97); MONOCYTES % (AUTO) 7.6 % (3-13); PLATELET COUNT 117 10^3/uL (150-450); RED BLOOD COUNT 5.16 10^6/uL (4.35-5.55); RED CELL DISTRIBUTION WIDTH 14.3 % (11.5-14.0); SEGMENTED NEUTROPHILS % (AUTO) 83.4 % (42-78); TOTAL CELLS COUNTED % (AUTO) 100 %; WHITE BLOOD COUNT 4.8 10^3/uL (4.0-10.5)
[2018-01-09 08:18] LABS: ANION GAP 11 (5-19); BLOOD UREA NITROGEN 10 mg/dL (7-20); CALCIUM 9.1 mg/dL (8.4-10.2); CARBON DIOXIDE 28 mmol/L (22-30); CHLORIDE 104 mmol/L (98-107); GLUCOSE 97 mg/dL (75-110); POTASSIUM 4.1 mmol/L (3.6-5.0); SODIUM 142.5 mmol/L (137-145)
--- NOTE | 2018-01-09 08:27 | RADIOLOGY REPORT (SQ) ---
EXAM DESCRIPTION: CHEST 2 VIEWS COMPLETED DATE/TIME: 01/09/2018 8:10 am REASON FOR STUDY: concern for aspiration COMPARISON: On chest film 07/23/2017, 04/10/2015, 10/23/2009 EXAM PARAMETERS: NUMBER OF VIEWS: two views TECHNIQUE: Digital Frontal and Lateral radiographic views of the chest acquired. RADIATION DOSE: NA LIMITATIONS: none FINDINGS: LUNGS AND PLEURA: Minimal left basilar bandlike atelectasis just above the hemidiaphragm. No fluffy alveolar infiltrates worrisome for edema or pneumonia. No pleural effusion. No pneumothor ax. 1 MEDIASTINUM AND HILAR STRUCTURES: No masses or contour abnormalities. HEART AND VASCULAR STRUCTURES: Heart normal size. No evidence for failure. BONES: No acute findings. HARDWARE: None in the chest. OTHER: No other significant finding. IMPRESSION: Minimal bandlike atelectasis left lung base TECHNICAL DOCUMENTATION: JOB ID: [id number] [employer]- All Rights Reserved Reading location - IP/workstation name: [email or web address]
[2018-01-09 08:51] VITALS: BP 105/78
== END 2018-01-09 08:51 | disposition home or self-care (01) ==
LOC: ER 05:58
DX: J95.89 Other postprocedural complications and disorders of respiratory system, not elsewhere classified (principal); J98.11 Atelectasis; J69.0 Pneumonitis due to inhalation of food and vomit; R50.9 Fever, unspecified; F17.200 Nicotine dependence, unspecified, uncomplicated; Z98.890 Other specified postprocedural states; I10 Essential (primary) hypertension
CPT/HCPCS: 99284; 96360; 36415; 85025; 80048; 71046; J7030

== ENCOUNTER 2019-09-26 22:15 | Emergency (ER) | payer SELFPAY ==
--- NOTE | 2019-09-26 22:51 | ER Document Report ---
ED Medical Screen (RME) - General Chief Complaint: Cold Symptoms Stated Complaint: RIGHT EAR PAIN Notes: Patient is a 34-year-old white male with a past medical history of allergies who presents to the emergency department with a chief complaint of cough for the past few days. Patient states the cough is productive of a discolored sputum. He reports that it is been associated with a slight increase in his baseline shortness of breath. States is been associated with sneezing and right ear pain as well. He denies any known fevers or chills. 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 I have treated and performed a rapid initial assessment of this patient. A comprehensive ED assessment and evaluation of the patient, analysis of test results and completion of medical decision making process will be conducted by additional ED providers. PHYSICAL EXAMINATION: GENERAL: Well-appearing, well-nourished and in no acute distress. A&Ox4. Answers questions appropriately. TRAVEL OUTSIDE OF THE [place] IN LAST 30 DAYS: No - Related Data Allergies/Adverse Reactions: latex [Latex] Allergy (Intermediate, Verified 10/23/17 09:13) rash oxycodone HCl [From Percocet] Allergy (Mild, Verified 10/23/17 09:13) itchy Past Medical History - Social History Chew tobacco use (# tins/day): No Frequency of alcohol use: None Drug Abuse: None - Past Medical History Cardiac Medical History: Reports: Hx Hypertension - no meds Denies: Hx Coronary Artery Disease, Hx Heart Attack Pulmonary Medical History: Reports: Hx Bronchitis Denies: Hx Asthma, Hx COPD, Hx Pneumonia Neurological Medical History: Denies: Hx Cerebrovascular Accident, Hx Seizures Renal/ Medical History: Denies: Hx Peritoneal Dialysis Musculoskeltal Medical History: Reports Hx Arthritis - back Past Surgical History: Reports: Hx Abdominal Surgery - herniorrhaphy., Hx Genitourinary Surgery - urethra strictures, Hx Herniorrhaphy, Other - ear surgery - Immunizations Immunizations up to date: Yes Hx Diphtheria, Pertussis, Tetanus Vaccination: Yes - 2006 Physical Exam - Vital signs Vitals: Temp Pulse Resp BP Pulse Ox 98.0 F 71 13 130/83 H 98 09/26/19 22:29 09/26/19 22:29 09/26/19 22:29 09/26/19 22:29 09/26/19 22:29 Course - Vital Signs Vital signs: Temp Pulse Resp BP Pulse Ox 98.0 F 71 13 130/83 H 98 09/26/19 22:29 09/26/19 22:29 09/26/19 22:29 09/26/19 22:29 09/26/19 22:29
[2019-09-26 23:39] LABS: A TYPE INFLUENZA AG NEGATIVE (NEGATIVE); B INFLUENZA AG NEGATIVE (NEGATIVE)
[2019-09-26] MEDS ORDERED: KETOROLAC TROMETHAMINE 60 MG/2 ML SDV IM ONE (23:45)
[2019-09-26] MEDS ORDERED: CIPROFLOXACIN HCL/DEXAMETH OTIC DROP 7.5 ML AD ONE (23:45)
--- NOTE | 2019-09-26 23:47 | ER Document Report ---
HPI - HPI Time Seen by Provider: 09/26/19 23:11 Pain Level: 3 Context: Patient is a 34-year-old male that comes emergency department for chief complaint of right ear pain. He states he has a throbbing pain in his right ear, he states he cannot even touch the ear without severe pain. He denies hearing loss, trauma, congestion, sore throat. Patient also has had a cough for several days, occasional clear productive sputum, and occasional sneezing. He denies fever but reports some chills. He denies recent travel or obvious sick contacts. 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 Patient states he has history of frequent pneumonia, he smokes, he also had a pneumothorax years ago. He denies difficulty breathing or chest pain however. He denies recreational drugs. - EENT EENT: REPORTS: Ear Pain - RESPIRATORY Respiratory: REPORTS: Trouble Breathing, Coughing Past Medical History - General Information source: Patient - Social History Smoking Status: Current Every Day Smoker Chew tobacco use (# tins/day): No Frequency of alcohol use: None Drug Abuse: None Lives with: Family Family History: Reviewed & Not Pertinent Patient has suicidal ideation: No Patient has homicidal ideation: No - Past Medical History Cardiac Medical History: Reports: Hx Hypertension - no meds Denies: Hx Coronary Artery Disease, Hx Heart Attack Pulmonary Medical History: Reports: Hx Bronchitis Denies: Hx Asthma, Hx COPD, Hx Pneumonia Neurological Medical History: Denies: Hx Cerebrovascular Accident, Hx Seizures Renal/ Medical History: Denies: Hx Peritoneal Dialysis Musculoskeletal Medical History: Reports Hx Arthritis - back Past Surgical History: Reports: Hx Abdominal Surgery - herniorrhaphy., Hx Genitourinary Surgery - urethra strictures, Hx Herniorrhaphy, Other - ear surgery - Immunizations Immunizations up to date: Yes Hx Diphtheria, Pertussis, Tetanus Vaccination: Yes - 2006 [facility] Provider Document - CONSTITUTIONAL General Appearance: WD/WN, No Apparent Distress - INFECTION CONTROL TRAVEL OUTSIDE OF THE [place] IN LAST 30 DAYS: No - HEENT HEENT: Atraumatic, Normocephalic. negative: Normal ENT Exam - Patient has tenderness over the right tragus with erythema of the canal, there is a moderate amount of wax in the right ear canal and the tympanic membrane is difficult to visualize, I cannot visualize this in the left ear. Mastoids are normal. Sinus exam unremarkable, oropharyngeal exam unremarkable. - NECK Neck: Normal Inspection. negative: Lymphadenopathy-Left, Lymphadenopathy-Right - RESPIRATORY Respiratory: Breath Sounds Normal, No Respiratory Distress - CARDIOVASCULAR Cardiovascular: Regular Rate, Regular Rhythm - GI/ABDOMEN Gastrointestinal: Abdomen Soft, Abdomen Non-Tender. negative: Abdomen Tender - BACK Back: Normal Inspection - MUSCULOSKELETAL/EXTREMETIES Musculoskeletal/Extremeties: MAEW, FROM, Non-Tender - NEURO Level of Consciousness: Awake, Alert, Appropriate Motor/Sensory: No Motor Deficit, No Sensory Deficit - DERM Integumentary: Warm, Dry, No Rash Course - Re-evaluation Re-evalutation: Because of patient's reported chills, cough, history of repeated pneumonia, history of pneumothorax, initially by protocol strep and influenza test were performed pending coronavirus testing, these were both negative, coronavirus is pending. I did discuss this, we will proceed and complete testing of coronavirus for the patient although I do have a lower suspicion of this with the patient. He has not had a fever, he has no hypoxia, no coughing on my exam, clear lungs, no signs of any respiratory distress. Chest x-ray is clear. Patient does however have obvious otitis externa on exam without secondary concerning findings. He was treated with Ciprodex and provided with this to go, discussed pending tests, recommendations, follow-up, and return precautions at length. Patient states appreciation and agreement with plan. Stable and well- appearing at time of discharge. - Vital Signs Vital signs: Temp Pulse Resp BP Pulse Ox 98.0 F 71 13 130/83 H 98 09/26/19 22:29 09/26/19 22:29 09/26/19 22:29 09/26/19 22:29 09/26/19 22:29 Discharge - Discharge Clinical Impression: Cough, Right ear pain Otitis externa Qualifiers: Otitis externa type: unspecified type Chronicity: acute Laterality: right Qualified Code(s): H60.501 - Unspecified acute noninfective otitis externa, right ear Condition: Stable Disposition: HOME, SELF-CARE Additional Instructions: Your chest x-ray is unremarkable, your evaluation is reassuring. This is most likely viral. You have been tested for the coronavirus, you will be contacted with the results, please see instructions on isolation listed below. Your evaluation also indicates right-sided otitis externa as we discussed. Use the drops as provided (4 drops, twice a day, for 7 days). Take 600 mg of ibuprofen and 1000 mg of Tylenol every 6 hours for pain. You can take additional [id number] medications for your general viral symptoms. Return if you worsen including swelling at the ear, spiking fevers, difficulty breathing, or any other concerning symptoms. As a person under investigation for COVID-19, the [facility] (divison on public health) advises you to adhere to the following guidance until your test results are reported to you. If your test result is positive, you will receive additional information from your provider and your local health department at that time. Remain at home until you are cleared by the health provider or public health authorities. Keep a log of visitors to your home, notify any visitors to your home of your isolation status. If you plan to move to a new address or leave the [facility], notify the local health department in your County. Call your Doctor or seek care if you have an urgent medical need. Before seeking medical care, call him to get instructions from the provider before arriving at the medical office, clinic, or hospital. Notify them that you are being tested for the virus (COVID-19) so that arrangements can be made, as necessary, to prevent transmission to others in the healthcare setting. Next, notify the local health department in your county. If a medical emergency arises and you need to call 911, inform the first responders that you are being tested for the virus that causes COVID-19. Next, notify the local health department in your county. Prescriptions: Ciprofloxacin HCl/Dexameth [Ciprodex Otic Suspension 7.5 ml Bottle] 4 drop BID #1 bottle Forms: Return to Work
--- NOTE | 2019-09-27 00:08 | RADIOLOGY REPORT (SQ) ---
EXAM DESCRIPTION: X-RAY CHEST- One View CLINICAL HISTORY: Cough COMPARISON: January 09, 2018 TECHNIQUE: Single view of the chest. FINDINGS: Bandlike opacity overlying the left lower lobe is stable dating back to 2018. There are no new discrete air space infiltrates, pneumothoraces or pleural effusions. The pulmonary vascularity is normal. The cardiomediastinal silhouette is normal in size. No suspicious lytic or blastic osseous lesions are identified. IMPRESSION: There are no acute lung parenchymal findings.
[2019-09-27 00:31] VITALS: BP 139/79
== END 2019-09-27 00:31 | disposition home or self-care (01) ==
LOC: ER 22:15
DX: H60.501 Unspecified acute noninfective otitis externa, right ear (principal); R05 Cough; R06.00 Dyspnea, unspecified; F17.200 Nicotine dependence, unspecified, uncomplicated
CPT/HCPCS: 99283; 96372; 87070; 87880; 87804; 71045; J1885; J3490

== ENCOUNTER 2020-02-17 23:21 | Emergency (ER) | payer SELFPAY ==
--- NOTE | 2020-02-18 02:23 | RADIOLOGY REPORT (SQ) ---
EXAM DESCRIPTION: XR CHEST 2 VIEWS COMPLETED DATE/TME: 02/18/2020 00:00 CLINICAL HISTORY: 34 years, Male, CHEST PAIN COMPARISON: 09/26/2019 NUMBER OF VIEWS: Two TECHNIQUE: Two views of the chest LIMITATIONS: None. FINDINGS: The lungs are clear. The heart is normal in size. No pneumothorax or pleural effusion. Bones are unremarkable. IMPRESSION: No acute cardiopulmonary abnormality copyright 2010 [employer]- All Rights Reserved
[2020-02-18 02:37] LABS: ABSOLUTE EOSINOPHILS # (AUTO) 0.2 10^3/uL (0.0-0.6); ABSOLUTE LYMPHOCYTES (AUTO) 2.4 10^3/uL (0.5-4.7); ABSOLUTE MONOCYTES (AUTO) 0.5 10^3/uL (0.1-1.4); ABSOLUTE NEUT (AUTO) 4.2 10^3/uL (1.7-8.2); BASOPHILS % (AUTO) 0.3 % (0-2); EOSINOPHILS % (AUTO) 2.7 % (0-6); HEMATOCRIT 44.9 % (37.9-51.0); HEMOGLOBIN 15.9 g/dL (13.5-17.0); LYMPHOCYTES % (AUTO) 33.2 % (13-45); MEAN CORPUSCULAR HEMOGLOBIN 30.3 pg (27.0-33.4); MEAN CORPUSCULAR HGB CONC 35.5 g/dL (32.0-36.0); MEAN CORPUSCULAR VOLUME 85 fl (80-97); MONOCYTES % (AUTO) 6.9 % (3-13); PLATELET COUNT 151 10^3/uL (150-450); RED BLOOD COUNT 5.26 10^6/uL (4.35-5.55); RED CELL DISTRIBUTION WIDTH 13.7 % (11.5-14.0); SEGMENTED NEUTROPHILS % (AUTO) 56.9 % (42-78); TOTAL CELLS COUNTED % (AUTO) 100 %; WHITE BLOOD COUNT 7.3 10^3/uL (4.0-10.5)
[2020-02-18 02:59] LABS: ALBUMIN 4.6 g/dL (3.5-5.0); ALKALINE PHOSPHATASE 67 U/L (38-126); ANION GAP 9 (5-19); ASPARTATE AMINO TRANSFERASE 27 U/L (17-59); BILIRUBIN,DIRECT 0.3 mg/dL (0.0-0.4); BILIRUBIN,TOTAL 0.7 mg/dL (0.2-1.3); BLOOD UREA NITROGEN 14 mg/dL (7-20); CALCIUM 9.6 mg/dL (8.4-10.2); CARBON DIOXIDE 30 mmol/L (22-30); CHLORIDE 104 mmol/L (98-107); CREATINE KINASE 60 U/L (55-170); GLUCOSE 93 mg/dL (75-110); POTASSIUM 4.6 mmol/L (3.6-5.0); TOTAL PROTEIN 7.1 g/dL (6.3-8.2)
[2020-02-18 03:10] LABS: CREATINE KINASE MB 0.49 ng/mL (<4.55); TROPONIN I < 0.012 ng/mL
--- NOTE | 2020-02-18 03:28 | ER Document Report ---
ED General - General Chief Complaint: Chest Pain Stated Complaint: CHEST PAIN,SHORTNESS OF BREATH Time Seen by Provider: 02/18/20 03:23 Primary Care Provider: LEYLA THORNTON MD [ACTIVE STAFF] - 02/22/20 Notes: Patient is a 34-year-old male who comes emergency department for chief complaint of episodes where he will suddenly feel lightheaded, he feels short of breath, he feels pain in the left side of his chest, his heart is going fast, and sometimes he breaks out into a sweat. He states this happens intermittently and has happened over the past several days. Patient denies passing out, he states he still feels "weird" but he denies current chest pain. He denies fever, vomiting, cough, or any sick symptoms. Patient states that he drinks "straight Mountain Dew all day every day", he smokes, he does not take any daily prescribed medications. He states his mother of an [place] at the age of 66. He denies recreational drugs, alcohol. Patient states that many years ago he also had a pneumothorax. TRAVEL OUTSIDE OF THE [place] IN LAST 30 DAYS: No - Related Data Allergies/Adverse Reactions: latex [Latex] Allergy (Intermediate, Verified 10/23/17 09:13) rash oxycodone HCl [From Percocet] Allergy (Mild, Verified 10/23/17 09:13) itchy Home Medications: EXECDRIN PRN Past Medical History - General Information source: Patient - Social History Smoking Status: Current Every Day Smoker Smoking Education Provided: Yes - <3 min Frequency of alcohol use: None Drug Abuse: None Lives with: Family Family History: CAD - Past Medical History Cardiac Medical History: Reports: Hx Hypertension - no meds Denies: Hx Coronary Artery Disease, Hx Heart Attack Pulmonary Medical History: Reports: Hx Bronchitis Denies: Hx Asthma, Hx COPD, Hx Pneumonia Neurological Medical History: Denies: Hx Cerebrovascular Accident, Hx Seizures Renal/ Medical History: Denies: Hx Peritoneal Dialysis Musculoskeletal Medical History: Reports Hx Arthritis - back Past Surgical History: Reports: Hx Abdominal Surgery - herniorrhaphy., Hx Genit ourinary Surgery - urethra strictures, Hx Herniorrhaphy, Other - ear surgery - Immunizations Immunizations up to date: Yes Hx Diphtheria, Pertussis, Tetanus Vaccination: Yes - 2006 Review of Systems - Review of Systems Constitutional: No symptoms reported EENT: No symptoms reported Cardiovascular: See HPI Respiratory: No symptoms reported Gastrointestinal: No symptoms reported Genitourinary: No symptoms reported Male Genitourinary: No symptoms reported Musculoskeletal: No symptoms reported Skin: No symptoms reported Hematologic/Lymphatic: No symptoms reported Neurological/Psychological: No symptoms reported Physical Exam - Vital signs Vitals: Temp Pulse Resp BP Pulse Ox 98.6 F 82 20 149/79 H 98 02/17/20 23:30 02/17/20 23:30 02/17/20 23:30 02/17/20 23:30 02/17/20 23:30 - Notes Notes: GENERAL: Alert, interacts well. HEAD: Normocephalic, atraumatic. EYES: Pupils equal, round, and reactive to light. Extraocular movements intact. ENT: Oral mucosa moist, tongue midline. Oropharynx unremarkable. Airway patent. NECK: Full range of motion. Supple. Trachea midline. No lymphadenopathy. LUNGS: Clear to auscultation bilaterally, no wheezes, rales, or rhonchi. No respiratory distress. Non-tender chest wall. HEART: Regular rate and rhythm. No murmur ABDOMEN: Soft, non-tender. Non-distended. Bowel sounds present in all 4 quadrants. GENITOURINARY: Deferred EXTREMITIES: Moves all 4 extremities spontaneously. No edema, normal radial and dorsalis pedis pulses bilaterally. No cyanosis. BACK: no cervical, thoracic, lumbar midline tenderness. No saddle anesthesia, normal distal neurovascular exam. Moves all extremities in full range of motion. NEUROLOGICAL: Alert and oriented x3. Normal speech. Cranial nerves II through XII grossly intact. Strength 5/5 in all extremities. PSYCH: Patient appears anxious and talks persistently, frequently interrupts me when I try to engage him SKIN: Warm, dry, normal turgor. No rashes or lesions noted. Course - Re-evaluation Re-evalutation: Patient is very anxious on my initial exam, he asks a lot of questions and states he is worried about his heart. Patient's physical exam is unremarkable otherwise, his vital signs are unremarkable. CBC, chemistry unremarkable, trop onin negative, delta troponin also negative, chest x-ray unremarkable, EKG unremarkable. I did give patient IV fluids because of his report that he persistently drinks only caffeine, he actually has Mountain Dew with him at the bedside. Afterwards patient fell asleep and upon waking he does feel much better. Based on his intermittent episodes after discussion of results I discussed with patient again, my impression is this is most likely episodes of palpitations which is most likely secondary to his combination of lack of sleep, nicotine use, and persistent caffeine use. Patient is PERC negative, heart score is less than 3, and overall I have a very low suspicion of acute intrathoracic emergency. I discussed with patient, discussed cardiology follow- up, discussed lifestyle changes, discussed return precautions. Patient states appreciation and agreement, stable, well-appearing, asymptomatic at time of discharge. - Vital Signs Vital signs: Temp Pulse Resp BP Pulse Ox 98.6 F 82 14 130/89 H 98 02/17/20 23:30 02/17/20 23:30 02/18/20 05:00 02/18/20 04:01 02/18/20 05:00 - Laboratory Result Diagrams: 02/18/20 02:20 02/18/20 02:20 - EKG Interpretation by Me Additional EKG results interpreted by me: EKG shows sinus rhythm at a rate of 73, QTc 424, normal axis, no T wave inversions or ST segment changes in consecutive leads Discharge - Discharge Clinical Impression: Chest pain of uncertain etiology Condition: Stable Disposition: HOME, SELF-CARE Additional Instructions: Based on your evaluation today including EKG, laboratory tests, chest x-ray, monitoring no concerning or life-threatening findings are seen. However because of your symptoms/episodes I do recommend that you follow-up closely with the cardiology referral for additional management. It is unclear at this time what the cause of your pain is or if you are having palpitations causing your symptoms. Because of possible palpitations causing the symptoms I recommend that you reduce your caffeine, stop smoking, and improve your sleep. Return if you worsen including severe worsening pain, difficulty breathing, passing out, vomiting, fever, or any other concerning or worsening symptoms. Forms: Return to Work Referrals: LEYLA THORNTON MD [ACTIVE STAFF] - 02/22/20
[2020-02-18] MEDS ORDERED: NORMAL SALINE 1000 ML 1,000 ML IV ONE (03:40)
[2020-02-18 06:40] VITALS: BP 121/72
--- NOTE | 2020-02-18 12:49 | EKG REPORT ---
SEVERITY:- NORMAL ECG - SINUS RHYTHM : Confirmed by: Moi Cho MD 18-Feb-2020 12:47:56
== END 2020-02-18 06:40 | disposition home or self-care (01) ==
LOC: ER 23:21
DX: R07.9 Chest pain, unspecified (principal); R42 Dizziness and giddiness; R06.02 Shortness of breath; R61 Generalized hyperhidrosis; F17.200 Nicotine dependence, unspecified, uncomplicated; I10 Essential (primary) hypertension; Z82.49 Family history of ischemic heart disease and other diseases of the circulatory system; Z91.040 Latex allergy status; Z88.6 Allergy status to analgesic agent; Z88.5 Allergy status to narcotic agent
CPT/HCPCS: 93005; 99406; 99285; 36415; 82553; 82550; 85025; 80053; 84484; 71046; 93010; J7030

== ENCOUNTER 2020-04-15 18:09 | Emergency (ER) | payer SELFPAY ==
[2020-04-15] MEDS ORDERED: METHYLPREDNISOLONE INJ 125 MG/2 ML SDV IM ONE (19:37)
[2020-04-15] MEDS ORDERED: IPRATROPIUM/ALBUTEROL 0.5-2.5 MG/3 ML AMPUL NEB ONE (19:38)
--- NOTE | 2020-04-15 19:41 | ER Document Report ---
ED Medical Screen (RME) - General Chief Complaint: Chest Pain > 30 Stated Complaint: COUGH,CONGESTION Time Seen by Provider: 04/15/20 19:37 Mode of Arrival: Ambulatory Information source: Patient Notes: Patient is a 34-year-old male with history of tobacco abuse who is coming in today with bad cough, chest pain, shortness of breath. He was seen earlier today and was told that he did not have coronavirus. He does get bronchitis several times a year. He is mainly here because his pain in his chest is gotten worse. General exam: Nontoxic-appearing Pulmonary: Rhonchi and wheezing bilaterally Cardiac regular rate and rhythm Abdomen nondistended Neuro no focal deficits I have greeted and performed a rapid initial assessment of this patient. A comprehensive ED assessment and evaluation of the patient, analysis of test results and completion of the medical decision making process will be conducted by additional ED providers. TRAVEL OUTSIDE OF THE [place] IN LAST 30 DAYS: No - Related Data Allergies/Adverse Reactions: latex [Latex] Allergy (Intermediate, Verified 10/23/17 09:13) rash oxycodone HCl [From Percocet] Allergy (Mild, Verified 10/23/17 09:13) itchy Past Medical History - Social History Frequency of alcohol use: None Drug Abuse: None - Past Medical History Cardiac Medical History: Reports: Hx Hypertension - no meds Denies: Hx Coronary Artery Disease, Hx Heart Attack Pulmonary Medical History: Reports: Hx Bronchitis Denies: Hx Asthma, Hx COPD, Hx Pneumonia Neurological Medical History: Denies: Hx Cerebrovascular Accident, Hx Seizures Renal/ Medical History: Denies: Hx Peritoneal Dialysis Musculoskeltal Medical History: Reports Hx Arthritis - back Past Surgical History: Reports: Hx Abdominal Surgery - herniorrhaphy., Hx Genitourinary Surgery - urethra strictures, Hx Herniorrhaphy, Other - ear surgery - Immunizations Immunizations up to date: Yes Hx Diphtheria, Pertussis, Tetanus Vaccination: Yes - 2006 Physical Exam - Vital signs Vitals: Temp Pulse Resp BP Pulse Ox 98.3 F 80 16 130/85 H 100 04/15/20 18:13 04/15/20 18:13 04/15/20 18:13 04/15/20 18:13 04/15/20 18:13 Course - Vital Signs Vital signs: Temp Pulse Resp BP Pulse Ox 98.3 F 80 16 130/85 H 100 04/15/20 18:13 04/15/20 18:13 04/15/20 18:13 04/15/20 18:13 04/15/20 18:13
--- NOTE | 2020-04-15 21:03 | RADIOLOGY REPORT (SQ) ---
XR CHEST 1 VIEW HISTORY: Cough/sob/chest pain. COMPARISON: 02/18/2020 FINDINGS: The heart size is within normal limits. There is no pulmonary vascular congestion. No consolidation, pleural effusion, or pneumothorax is seen. No acute bony findings are seen. IMPRESSION: No evidence of acute cardiopulmonary disease.
[2020-04-15 22:19] VITALS: BP 144/89
--- NOTE | 2020-04-15 23:06 | ER Document Report ---
ED General - General Chief Complaint: Chest Pain > 30 Stated Complaint: COUGH,CONGESTION Time Seen by Provider: 04/15/20 19:37 Mode of Arrival: Ambulatory TRAVEL OUTSIDE OF THE [place] IN LAST 30 DAYS: No - HPI Notes: 34-year-old male presents with chief complaint of "I've been sick". Patient states that he has "bronchitis", then states he has "walking pneumonia", states "I'm familiar with them". On further discussion patient states he has had a cough productive of a brown/green sputum. He has sharp pains in the center of his chest which increased with movement and with coughing. He has taken Tylenol Cold max without relief of his symptoms. He states that he was seen yesterday at an urgent care and he was negative for Covid, strep and flu. He is a former smoker. - Related Data Allergies/Adverse Reactions: latex [Latex] Allergy (Intermediate, Verified 10/23/17 09:13) rash oxycodone HCl [From Percocet] Allergy (Mild, Verified 10/23/17 09:13) itchy Past Medical History - General Information source: Patient - Social History Smoking Status: Former Smoker Frequency of alcohol use: None Drug Abuse: None Family History: CAD - Past Medical History Cardiac Medical History: Reports: Hx Hypertension - no meds Denies: Hx Coronary Artery Disease, Hx Heart Attack Pulmonary Medical History: Reports: Hx Bronchitis Denies: Hx Asthma, Hx COPD, Hx Pneumonia Neurological Medical History: Denies: Hx Cerebrovascular Accident, Hx Seizures Renal/ Medical History: Denies: Hx Peritoneal Dialysis Musculoskeletal Medical History: Reports Hx Arthritis - back Past Surgical History: Reports: Hx Abdominal Surgery - herniorrhaphy., Hx Genitourinary Surgery - urethra strictures, Hx Herniorrhaphy, Other - ear surgery - Immunizations Immunizations up to date: Yes Hx Diphtheria, Pertussis, Tetanus Vaccination: Yes - 2006 Review of Systems - Review of Systems Constitutional: denies: Fever EENT: denies: Throat pain Cardiovascular: Chest pain Respiratory: Cough, Hurts to breathe Gastrointestinal: No symptoms reported Genitourinary: No symptoms reported Male Genitourinary: No symptoms reported Musculoskeletal: No symptoms reported Skin: No symptoms reported Hematologic/Lymphatic: No symptoms reported Neurological/Psychological: No symptoms reported Physical Exam - Vital signs Vitals: Temp Pulse Resp BP Pulse Ox 98.3 F 80 16 130/85 H 100 04/15/20 18:13 04/15/20 18:13 04/15/20 18:13 04/15/20 18:13 04/15/20 18:13 - General General appearance: Appears well, Alert In distress: None - HEENT Head: Normocephalic, Atraumatic Extraocular movements intact: Yes Pupils: PERRL Neck: Supple - Respiratory Respiratory status: No respiratory distress Chest status: Tender - Parasternal Breath sounds: Rhonchi - At bases - Cardiovascular Rhythm: Regular Heart sounds: Normal auscultation - Abdominal Tenderness: Nontender - Extremities General upper extremity: Normal ROM General lower extremity: Normal ROM - Neurological Neuro grossly intact: Yes Cognition: Normal Orientation: AAOx4 Notes: Ambulatory with steady gait - Psychological Associated symptoms: Flat affect - Skin Skin Temperature: Warm Course - Re-evaluation Re-evalutation: 34-year-old male with productive cough and parasternal chest pain x4 days. On exam he is well-appearing, afebrile and hemodynamically stable, he does have some coarse rhonchi at bases, overall no respiratory distress. He was seen ambulatory and did not appear short of breath with ambulation. He has chest wall tenderness, I have a low suspicion for cardiac etiology of chest pain at this time, is likely pleuritic chest pain, EKG is nonischemic, will obtain troponin to officially rule out. Suspect he has acute bronchitis, his smoking history puts him at risk for this. Through triage she had a chest x-ray which did not show a consolidation. He was given Toradol, guaifenesin and Robitussin for his symptoms. 04/16/20 00:46 Troponin negative as anticipated. Patient reports improvement in his symptoms. Prescribed a Z-[place] for bronchitis, he was also instructed to continue ibuprofen/Robitussin/Mucinex peer. Precautions given, patient stable time of discharge. - Vital Signs Vital signs: Temp Pulse Resp BP Pulse Ox 97.8 F 72 20 144/89 H 99 04/15/20 22:18 04/15/20 22:18 04/15/20 22:18 04/15/20 22:18 04/15/20 22:18 - Diagnostic Test Radiology reviewed: Image reviewed, Reports reviewed - EKG Interpretation by Me Additional EKG results interpreted by me: EKG is interpreted by me. Normal sinus rhythm, rate 74. Narrow QRS, QTC within normal limits. No ST segment elevation or depression. Discharge - Discharge Clinical Impression: Bronchitis, Pleuritic chest pain Disposition: HOME, SELF-CARE Additional Instructions: Begin Z-[place] for bronchitis. You may also continue use of ibuprofen, Mucinex and Robitussin which are available [id number]. Please return the emergency department for any concerning worsening symptoms. Prescriptions: Azithromycin 250 mg PO ASDIR 5 Days #6 tablet
[2020-04-15] MEDS ORDERED: KETOROLAC TROMETHAMINE INJ/PF 30 MG/1 ML SDV IV ONE (23:32)
[2020-04-15] MEDS ORDERED: GUAIFENESIN 600 MG TABLET.SA PO ONE ×2 (23:33→23:36)
[2020-04-15] MEDS ORDERED: GUAIFENESIN/D-METHORPHAN (200-20 MG) SYRUP 10 ML PO ONE (23:36)
--- NOTE | 2020-04-16 06:57 | EKG REPORT ---
SEVERITY:- NORMAL ECG - SINUS RHYTHM : Confirmed by: Moi Cho MD 16-Apr-2020 06:56:52
== END 2020-04-16 00:55 | disposition home or self-care (01) ==
LOC: ER 18:09
DX: J40 Bronchitis, not specified as acute or chronic (principal); R07.81 Pleurodynia; R05 Cough; R68.89 Other general symptoms and signs; I10 Essential (primary) hypertension; Z91.040 Latex allergy status; Z88.6 Allergy status to analgesic agent
CPT/HCPCS: 93005; 99285; 96374; 36415; 84484; 71045; 93010; J1885; J3490